=== PATIENT | male | born 1940 | race Caucasian/White ===

== ENCOUNTER 2016-12-14 08:55 | Outpatient (CLI) | payer MEDICARE | END 2016-12-14 08:56 | DX: I10 Essential (primary) hypertension (principal); E03.9 Hypothyroidism, unspecified; E78.5 Hyperlipidemia, unspecified ==

== ENCOUNTER 2017-05-14 07:51 | Outpatient (CLI) | payer MEDICARE ==
[2017-05-14 13:13] LABS: ALBUMIN/GLOBULIN RATIO 1.6 (1.0-2.2); BASOPHILS % (AUTO) 0.6 %; BILIRUBIN,TOTAL 0.6 mg/dL (0.2-1.0); CALCIUM 9.2 mg/dL (8.5-10.3); EOSINOPHILS # (AUTO) 0.1 10^3/uL (0.0-0.7); EOSINOPHILS % (AUTO) 1.5 %; HCT - HEMATOCRIT 44.5 % (42.0-52.0); HGB - HEMOGLOBIN 15.3 g/dL (14.0-18.0); LYMPHOCYTES # (AUTO) 0.6 10^3/uL (1.5-3.5); LYMPHOCYTES % (AUTO) 10.8 %; MEAN CORPUSCULAR HEMOGLOBIN 31.6 pg (27.0-31.0); MEAN CORPUSCULAR HGB CONC 34.3 g/dL (32.0-36.0); MEAN CORPUSCULAR VOLUME 92.1 fL (80.0-94.0); MEAN PLATELET VOLUME 8.3 fL (7.4-11.4); MONOCYTES # (AUTO) 0.4 10^3/uL (0.0-1.0); MONOCYTES % (AUTO) 7.6 %; NEUTROPHILS # (AUTO) 4.1 10^3/uL (1.5-6.6); NEUTROPHILS % (AUTO) 79.5 %; NUCLEATED RED BLOOD CELLS AUTO 0.1 /100WBC; POTASSIUM 3.9 mmol/L (3.5-5.0); RED BLOOD COUNT 4.83 10^6/uL (4.70-6.10); RED CELL DISTRIBUTION WIDTH 13.7 % (12.0-15.0); TOTAL PROTEIN 6.9 g/dL (6.7-8.2); UNCORRECTED WHITE BLOOD COUNT 5.2 x10^3/uL; WHITE BLOOD COUNT 5.2 x10^3/uL (4.8-10.8)
== END 2017-05-14 07:52 | disposition home or self-care (01) ==
LOC: LAB.WCP 07:51
PROVIDERS: ATTEND Family Medicine
DX: N39.0 Urinary tract infection, site not specified (principal)
CPT/HCPCS: 36415; 80053; 85025; 87086

== ENCOUNTER 2018-05-18 08:00 | Outpatient (CLI) | payer MEDICARE ==
[2018-05-18 12:29] LABS: BASOPHILS % (AUTO) 0.4 %; EOSINOPHILS # (AUTO) 0.2 10^3/uL (0.0-0.7); EOSINOPHILS % (AUTO) 2.6 %; HGB - HEMOGLOBIN 15.3 g/dL (14.0-18.0); LYMPHOCYTES # (AUTO) 2.3 10^3/uL (1.5-3.5); LYMPHOCYTES % (AUTO) 37.3 %; MEAN CORPUSCULAR HEMOGLOBIN 31.9 pg (27.0-31.0); MEAN CORPUSCULAR HGB CONC 34.3 g/dL (32.0-36.0); MEAN PLATELET VOLUME 8.6 fL (7.4-11.4); MONOCYTES # (AUTO) 0.5 10^3/uL (0.0-1.0); MONOCYTES % (AUTO) 7.8 %; NEUTROPHILS # (AUTO) 3.1 10^3/uL (1.5-6.6); NEUTROPHILS % (AUTO) 51.9 %; PLT - PLATELET COUNT 235 10^3/uL (130-450); RED BLOOD COUNT 4.81 10^6/uL (4.70-6.10); RED CELL DISTRIBUTION WIDTH 13.8 % (12.0-15.0)
[2018-05-18 13:11] LABS: ALBUMIN 4.2 g/dL (3.2-5.5); ALBUMIN/GLOBULIN RATIO 1.6 (1.0-2.2); ALKALINE PHOSPHATASE 68 IU/L (42-121); ALT ALANINE AMINOTRANSFERASE 26 IU/L (10-60); AST ASPARTATE AMINOTRANSFERASE 32 IU/L (10-42); BUN - BLOOD UREA NITROGEN 16 mg/dL (6-20); CALCIUM 9.2 mg/dL (8.5-10.3); CARBON DIOXIDE - CO2 26 mmol/L (21-32); CHLORIDE 105 mmol/L (101-111); CHOLESTEROL 181 mg/dL; CREATININE 0.9 mg/dL (0.6-1.2); GFR - MDRD 82 (>89); GLUCOSE 102 mg/dL (70-100); HDL CHOLESTEROL 45 mg/dL; LDL CHOLESTEROL,CALCULATED 110 mg/dL; LDL/HDL RATIO 2.4 (<3.6); SODIUM 137 mmol/L (135-145); TOTAL PROTEIN 6.9 g/dL (6.7-8.2); VLDL CHOLESTEROL 26 mg/dL
== END 2018-05-18 08:01 ==
LOC: LAB.WCP 08:00
PROVIDERS: ATTEND Family Medicine
DX: I10 Essential (primary) hypertension (principal); E78.5 Hyperlipidemia, unspecified; Z12.5 Encounter for screening for malignant neoplasm of prostate; E03.9 Hypothyroidism, unspecified
CPT/HCPCS: 36415; 80053; 80061; 84443; 85025; G0103; 83721; 84153

== ENCOUNTER 2018-10-07 10:02 | Emergency (ER) | payer MEDICARE ==
[2018-10-07 11:33] LABS: BASOPHILS % (AUTO) 0.5 %; EOSINOPHILS # (AUTO) 0.1 10^3/uL (0.0-0.7); EOSINOPHILS % (AUTO) 1.1 %; HGB - HEMOGLOBIN 14.9 g/dL (14.0-18.0); LYMPHOCYTES # (AUTO) 1.3 10^3/uL (1.5-3.5); LYMPHOCYTES % (AUTO) 23.8 %; MEAN CORPUSCULAR HGB CONC 34.8 g/dL (32.0-36.0); MEAN CORPUSCULAR VOLUME 92.1 fL (80.0-94.0); MEAN PLATELET VOLUME 7.7 fL (7.4-11.4); MONOCYTES # (AUTO) 0.5 10^3/uL (0.0-1.0); MONOCYTES % (AUTO) 9.3 %; NEUTROPHILS # (AUTO) 3.7 10^3/uL (1.5-6.6); NEUTROPHILS % (AUTO) 65.3 %; PLT - PLATELET COUNT 216 10^3/uL (130-450); RED BLOOD COUNT 4.64 10^6/uL (4.70-6.10); RED CELL DISTRIBUTION WIDTH 13.7 % (12.0-15.0); WHITE BLOOD COUNT 5.7 x10^3/uL (4.8-10.8)
[2018-10-07 11:42] LABS: ALBUMIN 4.4 g/dL (3.2-5.5); ALBUMIN/GLOBULIN RATIO 1.6 (1.0-2.2); BILIRUBIN,TOTAL 0.6 mg/dL (0.2-1.0); CALCIUM 9.6 mg/dL (8.5-10.3); TOTAL PROTEIN 7.2 g/dL (6.7-8.2)
--- NOTE | 2018-10-07 11:50 | XRAY Report ---
Reason: chest pain Procedure Date: 10/07/2018 Accession Number: [id number] / [id number] Procedure: XR - Chest 1 View X-Ray CPT Code: 53899 FULL RESULT: EXAM: CHEST RADIOGRAPHY EXAM DATE: 10/07/2018 11:31 AM. CLINICAL HISTORY: Chest pain. COMPARISON: None available. TECHNIQUE: 1 view. FINDINGS: Lungs/Pleura: No focal opacities evident. No pleural effusion. No pneumothorax. Mediastinum: Within exam limitations, the cardiomediastinal contour is normal. Other: None. IMPRESSION: Grossly clear. RADIA
[2018-10-07] MEDS ORDERED: MAG HYDROX/AL HYDROX/SIMETH 30 ML UDC PO STA (11:55)
[2018-10-07] MEDS ORDERED: PHENobarb/HYOSCY/ATROPINE/SCOP 5 ML UDC PO STA (11:55)
[2018-10-07] MEDS ORDERED: LIDOCAINE VISCOUS 2% 15 ML UDC MM STA (11:55)
--- NOTE | 2018-10-07 12:06 | ED Physician Documentation ---
PD HPI CHEST PAIN - Stated complaint Stated Complaint: CHEST PX/PRESSURE ON LEFT ARM - Chief complaint Chief Complaint: Cardiac - History obtained from History obtained from: Patient, Family - History of Present Illness Timing - onset: How many days ago (2) Timing - duration: Minutes (Lasting 3 or 4 minutes at a time.) Timing - details: Intermittant Pain level now: 5 Location: Substernal Worsened by: Position (Supine position.) Associated symptoms: Shortness of air Similar symptoms before: Diagnosis (History of hiatal hernia and "heartburn.") - Additional information Additional information: The patient is a 77-year-old male who presents with history of substernal chest discomfort occurring during the past 2 nights after doing yoga with weights. He notices that it is worse when lying supine. He gets associated mild shortness of breath with exertion. He denies nausea, vomiting, or diaphoresis. Occasionally there will be an associated slight discomfort in his left upper arm, lasting for about 3 or 4 minutes at a time. He has a history of "heartburn" but became concerned that it might be cardiac related when he developed the left upper extremity involvement. He denies cough or fever. 2 weeks ago he underwent excision of an ingrown toenail. He developed an infection of his toe, for which he has been on Bactrim for the past 9 days. Cardiac risk factors: Positive for hypertension and hyperlipidemia. Negative for diabetes or cigarette smoking. Family history uncertain. Review of Systems Constitutional: denies: Fever, Fatigue Ears: denies: Tinnitus/ringing Nose: denies: Congestion Throat: denies: Sore throat Cardiac: reports: Chest pain / pressure. denies: Palpitations Respiratory: denies: Cough GI: denies: Abdominal Pain, Nausea, Vomiting : denies: Dysuria Skin: denies: Rash Musculoskeletal: denies: Extremity swelling Neurologic: denies: Focal weakness, Numbness, Headache PD PAST MEDICAL HISTORY - Past Medical History Past Medical History: Yes Cardiovascular: Hypertension, High cholesterol Endocrine/Autoimmune: HyPOthyroidism GI: GERD, Hiatal hernia, Diverticulitis Musculoskeletal: Osteoarthritis - Past Surgical History Past Surgical History: Yes General: Bowel surgery Ortho: Spine surgery HEENT: Cataracts - Present Medications Home Medications: Ambulatory Orders Medication Instructions Recorded Confirmed Ibuprofen [Motrin] 800 mg PO Q8H PRN #30 tablet 05/04/15 Naproxen Sodium [Aleve] PRN 05/04/15 05/04/15 Ondansetron Odt [Zofran] 4 mg TL Q6H PRN #10 tablet 05/04/15 oxyCODONE [Roxicodone] 5 mg PO Q4-6H #20 tablet 05/04/15 raNITIdine [Zantac] 150 mg PO BID #30 tablet 10/07/18 - Allergies Allergies/Adverse Reactions: Allergies Allergy/AdvReac Type Severity Reaction Status Date / Time hydrocodone Allergy Unknown Verified 10/07/18 10:16 morphine Allergy Unknown Verified 10/07/18 10:16 - Social History Does the pt smoke?: No Smoking Status: Former smoker Does the pt drink ETOH?: Yes ETOH Use: Beer Does the pt have substance abuse?: No - Immunizations Immunizations are current?: Yes - POLST Patient has POLST: No PD ED PE NORMAL - Vitals Vital signs reviewed: Yes (Systolic hypertension initially.) - General General: Alert and oriented X 3, Well developed/nourished - HEENT HEENT: Atraumatic, Moist mucous membranes, Pharynx benign - Neck Neck: Supple, no meningeal sign, No adenopathy, No JVD - Cardiac Cardiac: RRR - Respiratory Respiratory: No respiratory distress, Clear bilaterally - Abdomen Abdomen: Soft, Non tender - Back Back: No CVA TTP - Derm Derm: No rash - Extremities Extremities: No edema, No calf tenderness / cord - Neuro Neuro: Alert and oriented X 3, No motor deficit, No sensory deficit Results - Vitals Vitals: Oxygen O2 Source Room air - EKG (time done) 10:09 Rate: Rate (enter#) (73) Rhythm: NSR Liscomb: Normal Intervals: Normal AR QRS: Normal Ischemia: Normal ST segments Other comments: Other comments (Early R-wave progression.) Computer interpretation: Agree with computer - Labs Labs: Laboratory Tests 10/07/18 10/07/18 10/07/18 11:19 11:19 11:19 WBC 5.7 RBC 4.64 L Hgb 14.9 Hct 42.8 MCV 92.1 MCH 32.0 H MCHC 34.8 RDW 13.7 Plt Count 216 MPV 7.7 Neut # (Auto) 3.7 Lymph # (Auto) 1.3 L Pima # (Auto) 0.5 Eos # (Auto) 0.1 Baso # (Auto) 0.0 Absolute Nucleated RBC 0.00 Nucleated RBC % 0.0 Sodium 136 Potassium 3.9 Chloride 104 Carbon Dioxide 23 Anion Gap 9.0 BUN 19 Creatinine 1.0 Estimated GFR (MDRD) 73 L Glucose 110 H Calcium 9.6 Total Bilirubin 0.6 AST 39 ALT 36 Alkaline Phosphatase 78 Troponin I < 0.04 Total Protein 7.2 Albumin 4.4 Globulin 2.8 Albumin/Globulin Ratio 1.6 Lipase 32 - Rads (name of study) cxr Radiology: Prelim report reviewed, EMP read contemporaneously, See rad report (No acute cardiopulmonary abnormality.) PD MEDICAL DECISION MAKING - ED course Complexity details: reviewed results, re-evaluated patient, considered differential, d/w patient, d/w family ED course: The patient's presentation is most consistent with gastroesophageal reflux disease. Cardiac ischemia was considered, but is less likely. Electrocardiogram reveals no acute ischemic abnormality, and troponin is normal. Chest x-ray reveals no evidence of congestive heart failure or pneumothorax. I doubt pulmonary embolus. Treatment in the emergency department included administration of GI cocktail, which completely relieved the patient's symptoms. He is being discharged with prescription for ranitidine. I discussed with him and his family the diagnosis, symptomatic treatment and outpatient follow-up, as well as potentially worrisome signs or symptoms that should prompt reevaluation in the emergency department. Departure - Departure Disposition: 01 Home, Self Care Clinical Impression: Gastro-esophageal reflux Qualifiers: Esophagitis presence: esophagitis presence not specified Qualified Code(s): K21.9 - Gastro-esophageal reflux disease without esophagitis Condition: Stable Instructions: ED GERD Follow-Up: Mary Friedman DO [Primary Care Provider] - Prescriptions: raNITIdine [Zantac] 150 mg PO BID #30 tablet Comments: Minimize coffee, blessing, spicy foods, and alcohol. Take ranitidine twice daily as prescribed. You can use liquid antacid, such as Maalox or Mylanta, if you develop recurrent symptoms. Follow-up with your primary physician within 2 weeks. Call to schedule an appointment. Return to the emergency department if you develop increasing pain, difficulty swallowing, shortness of breath, or otherwise worsening symptoms. Discharge Date/Time: 10/07/18 13:30
[2018-10-07 13:17] VITALS: BP 128/72
== END 2018-10-07 13:30 | disposition home or self-care (01) ==
LOC: ED 10:02
DX: K21.9 Gastro-esophageal reflux disease without esophagitis (principal); I10 Essential (primary) hypertension; E78.5 Hyperlipidemia, unspecified; E03.9 Hypothyroidism, unspecified; Z87.891 Personal history of nicotine dependence
CPT/HCPCS: 36415; 71045; 80053; 83690; 84484; 85025; 93005; 99283; 99284; A9270

== ENCOUNTER 2018-11-11 10:48 | Outpatient (CLI) | payer MEDICARE ==
--- NOTE | 2018-11-11 15:51 | CARDIAC PROCEDURE NOTE ---
DATE OF SERVICE: 11/11/2018 Physician: Florecita Resendiz MD, [facility] INDICATIONS: Chest pain. Risk FACTORS: Male gender, advanced age, hyperlipidemia, hypertension, family history of heart disease. PROCEDURE: After signing informed consent, patient underwent a Wesly protocol treadmill stress test with nuclear myocardial imaging. RESTING HEART RATE: 59. Peak heart rate: 124 (86% predicted maximum heart rate for age). Resting blood pressure 138/66. Peak blood pressure 190/60. The patient exercised for 6 minutes on a Wesly protocol. He achieved a peak heart rate of 124 (86% PMHR), 7.1 METS. The patient had minimal shortness of breath. He did develop his typical left-sided chest pain, which he rated 3-4/10 at peak. The discomfort resolved after 5 minutes of recovery. RESTING EKG: Normal sinus rhythm, left atrial enlargement, LVH voltage, early repolarization. EKG AT [facility]: [address] depressions in leads V3 and V4. SUMMARY 1. Abnormal resting EKG. 2. Fair exercise tolerance. 3. Ischemic changes were seen by EKG criteria on this exercise stress test, at an adequate achieved level of stress. 4. Nuclear images reported separately. cc: Mary Friedman DO TD: 11/11/2018 14:48 [email or web address]
--- NOTE | 2018-11-15 06:53 | Nuclear Medicine Report ---
Reason: 170 LB - TING - CHEST PAIN Procedure Date: 11/11/2018 Accession Number: [id number] / [id number] Procedure: NM - Myocardial Perfusion STR/RST CPT Code: FULL RESULT: EXAM: SINGLE-ISOTOPE EXERCISE STRESS TEST. SINGLE-ISOTOPE AND ONE-DAY REST/STRESS MYOCARDIAL PERFUSION SCANS WITH TOMOGRAPHIC IMAGING, QUANTITATIVE ANALYSIS, WALL MOTION ANALYSIS AND CALCULATION OF EJECTION FRACTION. EXAM DATE: 11/11/2018 02:49 PM. CLINICAL HISTORY: Chest pain. COMPARISON: MYOCARDIAL PERFUSION 01/17/2008 2:50 PM. TECHNIQUE: A rest myocardial perfusion scan was done with tomography after the intravenous administration of 9 mCi Tc-99m sestamibi. After an appropriate delay, a treadmill exercise stress was performed according to department protocol. The patient exercised for 6 minutes and 0 seconds. The maximum heart rate was 124 bpm, which was 86% of the maximum predicted heart rate of 144 bpm. At approximately peak heart rate, 38.7 mCi of Tc-99m sestamibi was injected for stress myocardial perfusion scan. Motion correction was applied when appropriate. Gated tomographic images were obtained for wall motion analysis and computation of left ventricular ejection fraction. FINDINGS: On visual analysis, no fixed or reversible perfusion defects are evident. Apical thinning is noted. Computer analysis. Summed stress score 0 Summed rest score 0 Summed difference score 0 Wall motion analysis demonstrates no focal wall motion abnormality The left ventricular end-diastolic volume is 65 cc. The left ventricular end-systolic volume is 13 cc. The left ventricular ejection fraction is calculated to be 81%. IMPRESSION: 1. No scintigraphic findings to indicate myocardial ischemia. Negative for infarct. 2. Normal left ventricular ejection fraction of >65%. 3. Normal segmental and global wall motion. 4. Normal left ventricular cavity size, no change with stress. 5. Based on computer analysis, normal study with no ischemia. RADIA
== END 2018-11-11 10:49 | disposition home or self-care (01) ==
LOC: DI 10:48
PROVIDERS: ATTEND Family Medicine
DX: R07.9 Chest pain, unspecified (principal); R94.31 Abnormal electrocardiogram [ECG] [EKG]
CPT/HCPCS: 78452; 93017; A9500

== ENCOUNTER 2018-12-12 12:57 | Day surgery (SDC) | payer MEDICARE ==
[2018-12-12] MEDS ORDERED: LACTATED RINGERS 1,000 ML IV ONE (13:24)
[2018-12-12] MEDS ORDERED: fentaNYL 100 MCG/2 ML VIAL IVP ONE (13:52)
[2018-12-12] MEDS ORDERED: MIDAZOLAM 2 MG/2 ML VIAL IVP ONE (13:52)
[2018-12-12 14:30] VITALS: BP 125/69
== END 2018-12-12 15:03 | disposition home or self-care (01) ==
LOC: SDS 12:57
PROVIDERS: ATTEND Surgery
PROC: 0DBN8ZZ Excision of Sigmoid Colon, Via Natural or Artificial Opening Endoscopic (ICD-10-PCS; principal; 2018-12-12 14:15)
DX: Z12.11 Encounter for screening for malignant neoplasm of colon (principal); D12.5 Benign neoplasm of sigmoid colon; K57.30 Diverticulosis of large intestine without perforation or abscess without bleeding; Z80.0 Family history of malignant neoplasm of digestive organs; Z98.0 Intestinal bypass and anastomosis status; K64.8 Other hemorrhoids
CPT/HCPCS: 45380; J7120

== ENCOUNTER 2019-08-28 07:15 | Outpatient (CLI) | payer MEDICARE ==
[2019-08-28 11:48] LABS: BASOPHILS % (AUTO) 0.6 %; EOSINOPHILS # (AUTO) 0.2 10^3/uL (0.0-0.7); EOSINOPHILS % (AUTO) 3.9 %; HGB - HEMOGLOBIN 13.9 g/dL (14.0-18.0); LYMPHOCYTES # (AUTO) 2.2 10^3/uL (1.5-3.5); LYMPHOCYTES % (AUTO) 43.2 %; MEAN CORPUSCULAR HGB CONC 32.9 g/dL (32.0-36.0); MEAN CORPUSCULAR VOLUME 94.4 fL (80.0-94.0); MEAN PLATELET VOLUME 10.8 fL (7.4-11.4); MONOCYTES # (AUTO) 0.4 10^3/uL (0.0-1.0); MONOCYTES % (AUTO) 8.3 %; NEUTROPHILS # (AUTO) 2.2 10^3/uL (1.5-6.6); NEUTROPHILS % (AUTO) 43.8 %; PLT - PLATELET COUNT 212 10^3/uL (130-450); RED BLOOD COUNT 4.48 10^6/uL (4.70-6.10); RED CELL DISTRIBUTION WIDTH 13.4 % (12.0-15.0); WHITE BLOOD COUNT 5.1 x10^3/uL (4.8-10.8)
[2019-08-28 12:21] LABS: ALBUMIN 4.1 g/dL (3.2-5.5); ALBUMIN/GLOBULIN RATIO 1.8 (1.0-2.2); ALKALINE PHOSPHATASE 79 IU/L (42-121); ALT ALANINE AMINOTRANSFERASE 37 IU/L (10-60); AST ASPARTATE AMINOTRANSFERASE 34 IU/L (10-42); BILIRUBIN,TOTAL 0.5 mg/dL (0.2-1.0); BUN - BLOOD UREA NITROGEN 14 mg/dL (6-20); CALCIUM 9.1 mg/dL (8.5-10.3); CARBON DIOXIDE - CO2 28 mmol/L (21-32); CHLORIDE 106 mmol/L (101-111); CHOL/HDL RATIO 4.3 (<5.0); CHOLESTEROL 142 mg/dL; CREATININE 0.9 mg/dL (0.6-1.2); GFR - MDRD 82 (>89); GLUCOSE 95 mg/dL (70-100); HDL CHOLESTEROL 33 mg/dL; LDL CHOLESTEROL,CALCULATED 74 mg/dL; LDL/HDL RATIO 2.2 (<3.6); SODIUM 140 mmol/L (135-145); TOTAL PROTEIN 6.4 g/dL (6.7-8.2); URIC ACID 4.8 mg/dL (2.6-7.2); VLDL CHOLESTEROL 35 mg/dL
== END 2019-08-28 23:59 | disposition home or self-care (01) ==
LOC: LAB.WCP 07:15
PROVIDERS: ATTEND Family Medicine
DX: I10 Essential (primary) hypertension (principal); E78.5 Hyperlipidemia, unspecified; E03.9 Hypothyroidism, unspecified; M10.9 Gout, unspecified
CPT/HCPCS: 36415; 80053; 80061; 83721; 84443; 84550; 85025

== ENCOUNTER 2020-07-11 08:00 | Outpatient (CLI) | payer MEDICARE ==
[2020-07-11 11:54] LABS: BASOPHILS % (AUTO) 0.7 %; EOSINOPHILS # (AUTO) 0.2 10^3/uL (0.0-0.7); EOSINOPHILS % (AUTO) 4.3 %; HGB - HEMOGLOBIN 14.8 g/dL (14.0-18.0); LYMPHOCYTES # (AUTO) 2.4 10^3/uL (1.5-3.5); LYMPHOCYTES % (AUTO) 42.7 %; MEAN CORPUSCULAR HEMOGLOBIN 31.7 pg (27.0-31.0); MEAN CORPUSCULAR HGB CONC 33.3 g/dL (32.0-36.0); MEAN CORPUSCULAR VOLUME 95.1 fL (80.0-94.0); MEAN PLATELET VOLUME 10.4 fL (7.4-11.4); MONOCYTES # (AUTO) 0.5 10^3/uL (0.0-1.0); MONOCYTES % (AUTO) 8.5 %; NEUTROPHILS # (AUTO) 2.5 10^3/uL (1.5-6.6); NEUTROPHILS % (AUTO) 43.6 %; PLT - PLATELET COUNT 236 10^3/uL (130-450); RED BLOOD COUNT 4.67 10^6/uL (4.70-6.10); RED CELL DISTRIBUTION WIDTH 14.1 % (12.0-15.0); WHITE BLOOD COUNT 5.6 x10^3/uL (4.8-10.8)
[2020-07-11 11:57] LABS: ALBUMIN 4.2 g/dL (3.2-5.5); ALBUMIN/GLOBULIN RATIO 1.8 (1.0-2.2); ALKALINE PHOSPHATASE 70 IU/L (42-121); ALT ALANINE AMINOTRANSFERASE 23 IU/L (10-60); AST ASPARTATE AMINOTRANSFERASE 29 IU/L (10-42); BUN - BLOOD UREA NITROGEN 17 mg/dL (6-20); CALCIUM 9.2 mg/dL (8.5-10.3); CARBON DIOXIDE - CO2 27 mmol/L (21-32); CHLORIDE 106 mmol/L (101-111); CHOL/HDL RATIO 3.3 (<5.0); CHOLESTEROL 149 mg/dL; GLUCOSE 94 mg/dL (70-100); HDL CHOLESTEROL 45 mg/dL; LDL CHOLESTEROL,CALCULATED 91 mg/dL; SODIUM 139 mmol/L (135-145); TOTAL PROTEIN 6.6 g/dL (6.7-8.2); VLDL CHOLESTEROL 13 mg/dL
== END 2020-07-11 23:59 | disposition home or self-care (01) ==
LOC: LAB.WCP 08:00
PROVIDERS: ATTEND Family Medicine
DX: I10 Essential (primary) hypertension (principal); E78.5 Hyperlipidemia, unspecified; M10.00 Idiopathic gout, unspecified site; E78.1 Pure hyperglyceridemia; E03.9 Hypothyroidism, unspecified
CPT/HCPCS: 36415; 80053; 80061; 83721; 84443; 85025

== ENCOUNTER 2021-03-07 08:00 | Outpatient (CLI) | payer MEDICARE ==
[2021-03-07 11:56] LABS: BASOPHILS % (AUTO) 0.6 %; EOSINOPHILS # (AUTO) 0.2 10^3/uL (0.0-0.7); EOSINOPHILS % (AUTO) 3.7 %; HCT - HEMATOCRIT 45.3 % (42.0-52.0); HGB - HEMOGLOBIN 15.1 g/dL (14.0-18.0); LYMPHOCYTES # (AUTO) 2.4 10^3/uL (1.5-3.5); LYMPHOCYTES % (AUTO) 36.6 %; MEAN CORPUSCULAR HEMOGLOBIN 31.9 pg (27.0-31.0); MEAN CORPUSCULAR HGB CONC 33.3 g/dL (32.0-36.0); MEAN CORPUSCULAR VOLUME 95.8 fL (80.0-94.0); MEAN PLATELET VOLUME 10.2 fL (7.4-11.4); MONOCYTES # (AUTO) 0.5 10^3/uL (0.0-1.0); MONOCYTES % (AUTO) 8.2 %; NEUTROPHILS # (AUTO) 3.3 10^3/uL (1.5-6.6); NEUTROPHILS % (AUTO) 50.6 %; PLT - PLATELET COUNT 261 10^3/uL (130-450); RED BLOOD COUNT 4.73 10^6/uL (4.70-6.10); RED CELL DISTRIBUTION WIDTH 13.7 % (12.0-15.0); WHITE BLOOD COUNT 6.5 x10^3/uL (4.8-10.8)
[2021-03-07 13:00] LABS: ESTIMATED AVERAGE GLUCOSE 97 mg/dL (70-100)
[2021-03-07 13:03] LABS: ALBUMIN 4.5 g/dL (3.2-5.5); ALBUMIN/GLOBULIN RATIO 1.7 (1.0-2.2); ALKALINE PHOSPHATASE 71 IU/L (42-121); ALT ALANINE AMINOTRANSFERASE 23 IU/L (10-60); AST ASPARTATE AMINOTRANSFERASE 27 IU/L (10-42); BILIRUBIN,TOTAL 0.9 mg/dL (0.2-1.0); BUN - BLOOD UREA NITROGEN 17 mg/dL (6-20); CALCIUM 9.7 mg/dL (8.5-10.3); CARBON DIOXIDE - CO2 27 mmol/L (21-32); CHLORIDE 102 mmol/L (101-111); CHOL/HDL RATIO 3.5 (<5.0); CHOLESTEROL 183 mg/dL; GFR - MDRD 72 (>89); GLUCOSE 96 mg/dL (70-100); HDL CHOLESTEROL 53 mg/dL; LDL CHOLESTEROL,CALCULATED 114 mg/dL; LDL/HDL RATIO 2.2 (<3.6); POTASSIUM 4.3 mmol/L (3.5-5.0); SODIUM 138 mmol/L (135-145); TOTAL PROTEIN 7.1 g/dL (6.7-8.2); TRIGLYCERIDES 78 mg/dL; URIC ACID 5.2 mg/dL (2.6-7.2); VLDL CHOLESTEROL 16 mg/dL
[2021-03-07 13:12] LABS: THYROID STIMULATING HORMONE 3.48 uIU/mL (0.34-5.60)
== END 2021-03-07 23:59 | disposition home or self-care (01) ==
LOC: LAB.WCP 08:00
PROVIDERS: ATTEND Family Medicine
DX: I10 Essential (primary) hypertension (principal); E78.5 Hyperlipidemia, unspecified; G62.9 Polyneuropathy, unspecified; E03.9 Hypothyroidism, unspecified; M10.9 Gout, unspecified
CPT/HCPCS: 36415; 80053; 80061; 82607; 83036; 83721; 84443; 84550; 85025

== ENCOUNTER 2021-10-20 08:00 | Outpatient (CLI) | payer MEDICARE ==
[2021-10-20 20:16] LABS: BASOPHILS % (AUTO) 0.5 %; EOSINOPHILS # (AUTO) 0.2 10^3/uL (0.0-0.7); EOSINOPHILS % (AUTO) 3.3 %; HCT - HEMATOCRIT 44.9 % (42.0-52.0); LYMPHOCYTES # (AUTO) 2.3 10^3/uL (1.5-3.5); LYMPHOCYTES % (AUTO) 42.3 %; MEAN CORPUSCULAR HEMOGLOBIN 31.4 pg (27.0-31.0); MEAN CORPUSCULAR HGB CONC 33.4 g/dL (32.0-36.0); MEAN CORPUSCULAR VOLUME 94.1 fL (80.0-94.0); MEAN PLATELET VOLUME 10.2 fL (7.4-11.4); MONOCYTES # (AUTO) 0.5 10^3/uL (0.0-1.0); MONOCYTES % (AUTO) 9.7 %; NEUTROPHILS # (AUTO) 2.4 10^3/uL (1.5-6.6); NEUTROPHILS % (AUTO) 43.8 %; PLT - PLATELET COUNT 235 10^3/uL (130-450); RED BLOOD COUNT 4.77 10^6/uL (4.70-6.10); RED CELL DISTRIBUTION WIDTH 14.1 % (12.0-15.0); WHITE BLOOD COUNT 5.5 x10^3/uL (4.8-10.8)
[2021-10-20 20:33] LABS: ALBUMIN/GLOBULIN RATIO 1.5 (1.0-2.2); ALKALINE PHOSPHATASE 62 IU/L (42-121); ALT ALANINE AMINOTRANSFERASE 22 IU/L (10-60); AST ASPARTATE AMINOTRANSFERASE 25 IU/L (10-42); BILIRUBIN,TOTAL 0.8 mg/dL (0.2-1.0); BUN - BLOOD UREA NITROGEN 14 mg/dL (6-20); CALCIUM 9.3 mg/dL (8.5-10.3); CARBON DIOXIDE - CO2 26 mmol/L (21-32); CHLORIDE 102 mmol/L (101-111); CHOL/HDL RATIO 5.8 (<5.0); CHOLESTEROL 269 mg/dL; CREATININE 0.9 mg/dL (0.6-1.2); GFR - MDRD 82 (>89); GLUCOSE 102 mg/dL (70-100); HDL CHOLESTEROL 46 mg/dL; LDL CHOLESTEROL,CALCULATED 194 mg/dL; LDL/HDL RATIO 4.2 (<3.6); POTASSIUM 4.4 mmol/L (3.5-5.0); SODIUM 136 mmol/L (135-145); TOTAL PROTEIN 6.7 g/dL (6.7-8.2); TRIGLYCERIDES 145 mg/dL; URIC ACID 4.7 mg/dL (2.6-7.2); VLDL CHOLESTEROL 29 mg/dL
[2021-10-20 20:52] LABS: THYROID STIMULATING HORMONE 5.38 uIU/mL (0.34-5.60)
== END 2021-10-20 23:59 | disposition home or self-care (01) ==
LOC: LAB.WCP 08:00
PROVIDERS: ATTEND Family Medicine
DX: I10 Essential (primary) hypertension (principal); M10.9 Gout, unspecified
CPT/HCPCS: 36415; 80053; 80061; 83721; 84443; 84550; 85025

== ENCOUNTER 2022-06-14 11:12 | Outpatient (CLI) | payer MEDICARE | END 2022-06-14 23:59 | disposition critical access hospital (66) | LOC: EMS 11:12 | DX: R55 Syncope and collapse (principal); R11.0 Nausea; R42 Dizziness and giddiness | CPT/HCPCS: A0425; A0427 ==

== ENCOUNTER 2024-02-17 09:54 | Outpatient (CLI) | payer MEDICARE ==
--- NOTE | 2024-02-17 11:01 | Sleep Patient Instructions ---
Sleep Center Visit Summary - Patient Visit Information Reason for Visit: Initial consult for evaluation of sleep disordered breathing and other sleep issues. - Patient Instructions Instructions Attached: Sleep Study, Sleep Study Home Monitor Additional Instructions: You will be completing a sleep study, either an in-lab polysomnography (PSG) or home sleep study (HST). You will follow-up in the sleep care office after the sleep study is completed to hear the results and talk about therapy, if needed. You will be called by our office staff to schedule this appointment, but you may contact us with any questions. - Clinic Information Contact: [facility] [address] [place] [id number] [email or web address] T: [phone]
--- NOTE | 2024-02-17 11:05 | SLEEP CARE CONSULTATION ---
Information from patient questionnaire entered by Figueroa Hernandez. I have reviewed and concur with the information entered by Figueroa Hernandez. This document represents the service I personally performed and the decisions made by me, Ana Gregorio ARNP. History of Present Illness Service Date and Time: 02/17/2024 0954 Reason for Visit: New patient Chief Complaint: reports: Fatigue (takes nap in afternoon), Other (feet neuropathy, takes gabapentin) Date of Onset: 5-6YRS Usual bedtime: 2200 Time it takes to fall asleep: 15-20MINS Snores at night: Yes Observed to quit breathing while asleep: No Sleeps alone due to snoring: No Number of times waking at night: 2-3 Reasons for waking at night: reports: Pain, Other (UNKNOWN). denies: Choking, Gasping for air Toss, Turn, or Twitch while sleeping: Yes Recalls having dreams: Yes Usually gets out of bed at: 7302-1677 Feels refreshed in the morning: No Morning headache: No Sleepy or fatigued during the day: Yes Ever fallen asleep while driving: No Takes day naps: Yes (2-3 times a week; last 30-45 mins) Dreams during day naps: No Prior sleep studies: No Additional HPI information: I had the pleasure of seeing ROSENDO MAYEN today regarding the possibility of him having a sleep disorder. His current complaints are neuropathy in feet interrupting sleep and taking nap in afternoon. His says that he snores and it can get loud sometimes. She has not noticed pauses in breathing. He does not wake up feeling refreshed in the morning. He does nap in afternoon a few times a week for about 30-45 minutes. He says he is very active. - Parasomnia Symptoms Ever been unable to move upon waking from sleep: No Walks in sleep: No Talks in sleep: No Ever acted out dreams in sleep: No Ever felt weak in the knees when startled or emotional: No Bothered by creepy, crawly, restless sensations in legs: No Problems with memory or concentration: No Subjective Initial Monarch Sleepiness Scale score: 8 (02/17/24) Past Medical History Past Medical History: reports: Hypertension, Arthritis, Hypothyroidism, GERD, Other (POLYNEUROPATHY; high cholesterol; enlarged prostate) Social History The patient's occupation is a RE. Patient is and lives in [place]. Have you smoked in the past 12 months: No Alcohol use: Yes Alcohol amount and frequency: 1 DRINK 4-7 DAYS WEEK Caffeine use: Yes Caffeine amount and frequency: 1 CUP DAILY Family History Family history of sleep disordered breathing: No Allergies and Home Medications Known drug allergies: Yes (as listed) Drug allergies reviewed: Yes Home medication list reviewed: Yes (as listed) Allergy and home medication list: Allergies hydrocodone Allergy (Verified 02/15/24 09:51) Unknown morphine Allergy (Verified 02/15/24 09:51) Unknown niacin Allergy (Verified 02/15/24 09:51) Unknown simvastatin [From Simcor] Allergy (Verified 02/15/24 09:51) Unknown Home Medications Medication Instructions Recorded Confirmed Last Taken Type Levothyroxine Sodium [Synthroid] 88 mcg ORAL DAILY 12/12/18 02/17/24 12/12/18 History Losartan Potassium 100 mg ORAL DAILY 12/12/18 02/17/24 12/11/18 History Acyclovir See Rx Instructions .ROUTE .COMPLEX 02/17/24 02/17/24 Unknown History Alpha Lipoic Acid See Rx Instructions .ROUTE .COMPLEX 02/17/24 02/17/24 Unknown History Cholecalciferol [Vitamin D3] See Rx Instructions .ROUTE .COMPLEX 02/17/24 02/17/24 Unknown History Gabapentin [Neurontin] See Rx Instructions .ROUTE .COMPLEX 02/17/24 02/17/24 Unknown History Mecobalamin [B12 Active] See Rx Instructions .ROUTE .COMPLEX 02/17/24 02/17/24 Unknown History Rosuvastatin Calcium [Crestor] See Rx Instructions .ROUTE .COMPLEX 02/17/24 02/17/24 Unknown History Tamsulosin [Flomax] See Rx Instructions .ROUTE .COMPLEX 02/17/24 02/17/24 Unknown History Timolol 0.5% Ophth Drops [Timoptic See Rx Instructions .ROUTE .COMPLEX 02/17/24 02/17/24 Unknown History 0.5% Ophth Drops] Review of Systems Weight gain over past 5 years: 5 Weight loss over past 5 years: 5 Cardiovascular: reports: high blood pressure Respiratory: reports: shortness of breath Gastrointestinal: reports: heartburn Urinary: reports: other (KIDNEY STONES) Neurological: reports: gait or balance problems, other (NEUROPATHY). denies: headaches Ear/Nose/Throat: reports: nasal congestion. denies: tonsillectomy Endocrine: reports: thyroid disease Musculoskeletal: reports: joint pain, neck pain, back pain Immunologic: reports: sneezing Physical Exam Vital signs obtained and entered by: FIGUEROA Bettecnourt MA Blood Pressure: 137/66 (LEFT ARM) Cuff size: regular Heart Rate: 64 O2 Saturation: 96 Height: 5 ft 6.5 in Weight: 171 lb 3.2 oz Body Mass Index: 27.2 BMI Classification: Overweight Neck circumference: 16 Nostrils: patent to airflow Mouth and throat: narrow oropharynx Soft palate: long Hard palate: normal Uvula: normal Uvula visualization: 25% Mallampati Class III Tongue: enlarged in size with teeth ely on lateral edges Tonsils: small Neck: normal w/o lymphadenopathy or thyromegaly Heart: regular rate and rhythm Lungs: clear bilaterally Impression and Plan 1. Suspected Obstructive Sleep Apnea-Hypopnea Syndrome, as suggested by a history of loud and irregular snoring and unrefreshed sleep. Narrow oropharynx and obesity are common predisposing factors for obstructive sleep apnea-hypopnea syndrome. I recommend proceeding to polysomnography to confirm the diagnosis and to assess severity. If the patient has significant sleep disordered breathing, a manual CPAP titration study will also be performed to find the optimal treatment pressure. I informed the patient of what the sleep studies involve and after some discussion, obtained agreement to proceed. The pathophysiology of obstructive sleep apnea-hypopnea syndrome was discussed with the patient and health risks of cardiovascular and cerebrovascular disease if not treated. Risks of drowsy driving discussed in detail and patient advised to avoid long distance driving and to tail puller at the first sign of drowsiness. Patient agreed to plan. * Schedule polysomnography. * Avoid long distance driving or driving when feeling sleepy. * Avoid alcohol, sedative and muscle relaxant around bedtime. * Attempt to lose weight. * Review instructions provided by trained office staff on how to prepare for the sleep study. * Return for follow-up after sleep study completed. Plan: PSG/HST and followup Visit Type: In Office Provider Statement: I spent 100% of the Face to Face Visit with the patient with greater than 50% spent counseling the patient and coordination of care.
[2024-02-17 11:08] VITALS: BP 137/66; O2SAT 96
== END 2024-02-17 09:55 | disposition home or self-care (01) ==
LOC: SC 09:54
PROVIDERS: ATTEND Nurse Practitioner Family
DX: G47.8 Other sleep disorders (principal); R06.83 Snoring
CPT/HCPCS: 99203; G0463; 99212

== ENCOUNTER 2024-03-17 14:00 | Outpatient (CLI) | payer MEDICARE | END 2024-03-17 14:01 | disposition home or self-care (01) | LOC: SC 14:00 | PROVIDERS: ATTEND Nurse Practitioner Family | DX: G47.33 Obstructive sleep apnea (adult) (pediatric) (principal); R09.02 Hypoxemia | CPT/HCPCS: G0399 ×2; 95806 ==

== ENCOUNTER 2024-04-14 09:47 | Outpatient (CLI) | payer MEDICARE ==
--- NOTE | 2024-04-14 10:21 | Sleep Patient Instructions ---
Sleep Center Visit Summary - Patient Visit Information Reason for Visit: Sleep study follow-up - Patient Instructions Instructions Attached: CPAP Additional Instructions: You are being started on CPAP therapy with pressure setting at 4-15 cmH2O. You w ill need to call the sleep care office to set up your follow up once you have your CPAP machine to check compliance and response to therapy at that time. You may call the office with any concerns about pressure feeling too low or too much for adjustment, if needed. You should contact DME supplier for any questions or concerns about mask or equipment. Please call office to schedule a follow up appointment in the sleep care office one month after obtaining new device. - Clinic Information Contact: [facility] [address] [place] [address] [email or web address] T: [phone]
[2024-04-14 10:26] VITALS: BP 135/63; O2SAT 96
--- NOTE | 2024-04-14 10:26 | SLEEP CARE CONSULTATION ---
Information from patient questionnaire entered by Louisa Hernandez. I have reviewed and concur with the information entered by Louisa Hernandez. This document represents the service I personally performed and the decisions made by me, Ana Gregorio ARNP. History of Present Illness Service Date and Time: 04/14/2024 0947 Initial [place] Sleepiness Scale score: 8 (02/17/24) Current [place] Sleepiness Scale score: 6 Additional HPI information: ROSENDO MAYEN returns for follow up and results of the recently performed home sleep study. The sleep study done on 03/17/2024 showed mild obstructive sleep apnea with an average AHI of 14.8 and manish oxygen saturation of 86%. I explained the pathophysiology behind obstructive sleep apnea. We then spent quite a bit of time discussing different treatment options. For mild obstructive sleep apnea, surgery and oral appliance are alternatives to nasal CPAP therapy but in moderate or severe cases, nasal CPAP is the most effective and reliable treatment. Because apnea is primarily in supine position, then positional management therapy could be effective. Methods discussed such as positioning with pillows, using a T-shirt with tennis balls in the back or commercial products that have a pillow format on back to prevent supine sleep. I reviewed the impact of weight changes on sleep apnea and strongly recommended losing weight. After some discussion, the patient opted to go with the nasal CPAP therapy. Nasal autoCPAP set at 4-15 cmH20 will be ordered with rationale explained. A manual titration study will be ordered if unable to find optimal pressure with office adjustments. I explained how CPAP machine works and what to expect when using the machine. Using CPAP every night in order to get used to it was emphasized. Patient advised to put CPAP mask on before getting into bed so as not to fall asleep without CPAP. To assist acclimation to CPAP use, it could also be used for a short time during day while reading or watching TV. The patient was instructed to call the CPAP supplier to discuss any mechanical problem that may occur. If the mask given is uncomfortable or is difficult to keep on through the night even with adjustment, contact the CPAP supplier as many will replace with another mask style if notified before 30 days. If snoring or perceives is not getting enough air or too much air from the machine, notify this office. Patient counseled not drink alcohol less than 4 hours before bedtime as it can increase snoring and apnea. Patient was cautioned about risks of drowsy driving until sleepiness symptoms resolve. Patient denies drowsy driving. Sleep Study - Results Type of Sleep Study: Home sleep study (COMPLETED 03/17/24) Prior sleep studies: No Polysomnography/Home Sleep Study results: Physician Impression: The quality of the study is good. The length of the study is adequate (> 240 minutes). Please also see the tabulated and graphic data. 1. Obstructive Sleep Apnea-Hypopnea (ICD-10 G47.33), mild, with an AHI of 14.8/hr and manish SaO2 of 86%. During the study, the patient had 72 apneas (72 obstructive, 0 central, 0 mixed) and 53 hypopneas. The longest episode lasted 118.0 seconds. The respiratory events occurred more frequently during supine sleep (supine AHI was 28.7 and non-supine, 10.23). 2. Hypoxemia (ICD-10 R09.02), mild, with the lowest oxygen saturation of 86 % and 2.7 minutes with SaO2 under 90%. Baseline oxygen saturation was normal (Average oxygen saturation was 94%). Allergies and Home Medications Known drug allergies: Yes (as listed) Drug allergies reviewed: Yes Home medication list reviewed: Yes (Celecoxib) Allergy and home medication list: Allergies hydrocodone Allergy (Verified 04/12/24 08:43) Unknown morphine Allergy (Verified 04/12/24 08:43) Unknown niacin Allergy (Verified 04/12/24 08:43) Unknown simvastatin [From Simcor] Allergy (Verified 04/12/24 08:43) Unknown Review of Systems Review of systems same as previous: Yes (no changes) Physical Exam Vital signs obtained and entered by: Ana Ervin NP Blood Pressure: 135/63 Cuff size: regular (left arm) Heart Rate: 59 O2 Saturation: 96 Height: 5 ft 6.5 in Weight: 172 lb Body Mass Index: 27.3 BMI Classification: Overweight Impression and Plan 1. Obstructive Sleep Apnea-Hypopnea Syndrome, mild, with lowest oxygen saturation of 86%. Obviously this is the cause of the patients symptoms of unrefreshed sleep, and excessive daytime sleepiness. Positive pressure therapy could benefit hypertension and gastric reflux. As mentioned above, the patient will be started on nasal autoCPAP therapy with pressure set at 4-15 cmH2O. A manual titration study will be completed if unable to find optimal treatment pressure with office adjustments. Compliance guidelines also reviewed. A copy of compliance guidelines will be given for reference at check out. Because the apnea is more severe supine, I instructed to avoid sleeping supine using pillow positioning until able to start CPAP use. 2. Hypoxemia, mild, with a manish oxygen saturation of 86% and 2.7 minutes spent under 90%. The baseline oxygen saturation was normal with an average oxygen saturation of 94%. 3. Overweight, unspecified. Currently patients BMI is 27.3. Obesity increases the risk of apnea, CPAP pressure requirements and overall health risks especially cardiovascular and diabetes. Thus patient is advised to lose weight. * Nasal auto CPAP therapy, pressure at 4-15 cm H2O. * Attempt to lose weight. * Avoid alcohol consumption near bedtime. * Avoid supine sleep until using CPAP. * The patient is again cautioned about driving until sleepiness completely resolves. * Return one month after CPAP obtained. I will assess response to therapy and compliance at that time. Counseling Topics: Sleeping position, Weight loss health impact Prescriptions: Auto CPAP Visit Type: In Office Time Spent with Patient (minutes): 23 Provider Statement: I spent 100% of the Face to Face Visit with the patient with greater than 50% spent counseling the patient and coordination of care.
== END 2024-04-14 09:48 | disposition home or self-care (01) ==
LOC: SC 09:47
PROVIDERS: ATTEND Nurse Practitioner Family
DX: G47.33 Obstructive sleep apnea (adult) (pediatric) (principal); R09.02 Hypoxemia; E66.3 Overweight; Z68.27 Body mass index [BMI] 27.0-27.9, adult
CPT/HCPCS: 99213; G0463; 99212